=== PATIENT | female | born 1955 | race Caucasian/White ===

== ENCOUNTER 2020-12-05 15:30 | Outpatient (CLI) | payer MEDICARE, OTHER | END 2020-12-05 15:31 | disposition home or self-care (01) | LOC: CSHULT 15:30 | PROVIDERS: ATTEND Family Medicine | DX: R22.1 Localized swelling, mass and lump, neck (principal) | CPT/HCPCS: 76536 ==

== ENCOUNTER 2020-12-06 12:22 | Outpatient (CLI) | payer MEDICARE, OTHER | END 2020-12-06 12:23 | disposition home or self-care (01) | LOC: CSHCT 12:22 | PROVIDERS: ATTEND Family Medicine | DX: R22.1 Localized swelling, mass and lump, neck (principal); J38.7 Other diseases of larynx | CPT/HCPCS: 70491 ==

== ENCOUNTER 2020-12-11 09:39 | Outpatient (CLI) | payer MEDICARE, OTHER | END 2020-12-11 09:40 | disposition home or self-care (01) | LOC: CSHMAMMO 09:39 | PROVIDERS: ATTEND Family Medicine | DX: M81.0 Age-related osteoporosis without current pathological fracture (principal); M85.80 Other specified disorders of bone density and structure, unspecified site | CPT/HCPCS: 77080 ==

== ENCOUNTER 2021-04-16 10:36 | Outpatient (CLI) | payer MEDICARE, OTHER | END 2021-04-16 10:37 | disposition home or self-care (01) | LOC: CSHCT 10:36 | PROVIDERS: ATTEND Family Medicine | DX: Z12.2 Encounter for screening for malignant neoplasm of respiratory organs (principal); Z87.891 Personal history of nicotine dependence; I25.10 Atherosclerotic heart disease of native coronary artery without angina pectoris; J43.2 Centrilobular emphysema | CPT/HCPCS: 71271 ==

== ENCOUNTER 2021-09-18 08:17 | Outpatient (CLI) | payer MEDICARE, OTHER | END 2021-09-18 08:18 | disposition home or self-care (01) | LOC: CSHCT 08:17 | PROVIDERS: ATTEND Family Medicine | DX: R91.8 Other nonspecific abnormal finding of lung field (principal) | CPT/HCPCS: 71260; 82565 ==

== ENCOUNTER 2022-08-30 09:36 | Inpatient (IN) | payer MEDICARE, OTHER ==
[~2022-08-30 09:36] MED LIST: Iopamidol 370 76% 100 ML VIAL ONE
[2022-08-30] MEDS ORDERED: Acetaminophen 500 MG TAB ONE (10:04)
[2022-08-30 10:19] LABS: #Monocytes 0.5 10x3/uL (0.0-1.1); #Neutrophils 2.4 10x3/uL (1.5-8.4); %Basophils 0.3 % (0.0-2.0); %Eosinophils 0.3 % (0.0-6.0); %Lymphocytes 21.8 % (18.0-47.0); %Neutrophils 64.3 % (40.0-75.0); Hemoglobin 13.1 g/dL (12.0-15.5); Mean Corpuscular HGB CONC 33.8 g/dL (32.0-36.0); Mean Platelet Volume 9.7 fl (7.4-10.4); Platelet Count 141 10x3/uL (150-450); RBC Distribution Width 13.8 % (11.5-14.5); Red Blood Cell (RBC) Count 4.51 10x6/uL (3.90-5.03); White Blood Cell (WBC) Count 3.8 10x3/uL (3.5-10.5)
[2022-08-30] MEDS ORDERED: Ketorolac Tromethamine 30 MG/ML VIAL ONE (10:22)
[2022-08-30] MEDS ORDERED: Dexamethasone 10 MG/ML VIAL ONE (10:22)
[2022-08-30 10:43] LABS: ALT (SGPT) 21 U/L (8-55); AST (SGOT) 38 U/L (5-34); Albumin 4.1 g/dL (3.4-4.8); Alkaline Phosphatase 76 U/L (40-110); Anion Gap 15 mmol/L (10-20); BUN (Urea Nitrogen) 19 mg/dL (9.8-20.1); Bilirubin, Total 0.5 mg/dL (0.2-1.2); Calc. Creatinine Clearance 0 mL/min (70-130); Calcium 8.7 mg/dL (7.8-10.44); Carbon Dioxide 21 mmol/L (23-31); Chloride 106 mmol/L (98-107); Estimated GFR 70; Globulin 3.4 g/dL (2.4-3.5); Glucose 86 mg/dL (80-115); Potassium 3.8 mmol/L (3.5-5.1); Protein, Total 7.5 g/dL (5.8-8.1); Sodium 138 mmol/L (136-145)
[2022-08-30 10:57] LABS: SARS-CoV-2 NAA Rapid Test DETECTED (NotDetected)
[2022-08-30] MEDS ORDERED: Cefepime 2 GM VIAL ONE (11:28)
[2022-08-30] MEDS ORDERED: Azithromycin 500 MG VIAL ONE (11:29)
[2022-08-30] MEDS ORDERED: cefTRIAXone\\ROCEPHIN 2 GM VIAL ONE (11:29)
[2022-08-30] MEDS ORDERED: rOPINIRole HCl 0.25 MG TAB PO SCH (14:30)
[2022-08-30] MEDS ORDERED: Ondansetron ODT 4 MG TAB PO PRN (15:50)
[2022-08-30] MEDS ORDERED: REMDESIVIR 200 MG in Sodium Chloride 0.9% 250 ML 210 ML IV SCH ×2 (16:00→21:00)
[2022-08-30] MEDS: rOPINIRole HCl 1 MG TAB PO SCH (21:59)
[2022-08-30] MEDS: Benzonatate 100 MG CAP PO PRN (22:00)
[2022-08-30] MEDS: Famotidine 20 MG TAB PO SCH ×2 (22:04→22:21)
[2022-08-30] MEDS: Acetaminophen 325 MG TAB PO PRN (22:19)
[2022-08-30 23:09] VITALS: BMI 39.5
[2022-08-31 06:01] LABS: ALT (SGPT) 19 U/L (8-55); AST (SGOT) 32 U/L (5-34); Albumin 3.4 g/dL (3.4-4.8); Alkaline Phosphatase 65 U/L (40-110); Anion Gap 10 mmol/L (10-20); BUN (Urea Nitrogen) 18 mg/dL (9.8-20.1); Bilirubin, Total 0.3 mg/dL (0.2-1.2); Calc. Creatinine Clearance 137 mL/min (70-130); Calcium 8.4 mg/dL (7.8-10.44); Carbon Dioxide 23 mmol/L (23-31); Chloride 112 mmol/L (98-107); Estimated GFR 88; Globulin 2.9 g/dL (2.4-3.5); Glucose 207 mg/dL (80-115); Potassium 3.7 mmol/L (3.5-5.1); Protein, Total 6.3 g/dL (5.8-8.1); Sodium 141 mmol/L (136-145)
[2022-08-31 06:10] LABS: #Monocytes 0.3 10x3/uL (0.0-1.1); #Neutrophils 1.9 10x3/uL (1.5-8.4); %Basophils 0.3 % (0.0-2.0); %Lymphocytes 23.1 % (18.0-47.0); %Monocytes 9.7 % (0.0-10.0); %Neutrophils 66.6 % (40.0-75.0); Hemoglobin 11.8 g/dL (12.0-15.5); Mean Corpuscular HGB CONC 33.5 g/dL (32.0-36.0); Mean Corpuscular Volume 86.5 fl (81.6-98.3); Mean Platelet Volume 9.9 fl (7.4-10.4); Platelet Count 153 10x3/uL (150-450); RBC Distribution Width 13.6 % (11.5-14.5); Red Blood Cell (RBC) Count 4.07 10x6/uL (3.90-5.03); White Blood Cell (WBC) Count 2.9 10x3/uL (3.5-10.5)
[2022-08-31] MEDS: Ventolin HFA Inhaler 60 PUFF INHALER INH PRN ×2 (07:50→14:30)
[2022-08-31] MEDS ORDERED: Dexamethasone 10 MG/ML VIAL SLOW IVP SCH (09:00)
[2022-08-31] MEDS: Cholecalciferol (Vitamin D3) 400 UNITS TAB PO SCH (10:28)
[2022-08-31] MEDS: Famotidine 20 MG TAB PO SCH ×4 (10:28→22:19)
[2022-08-31] MEDS: rOPINIRole HCl 1 MG TAB PO SCH ×3 (10:28→20:46)
[2022-08-31] MEDS: Ascorbic Acid 500 mg Chewable Tablet PO SCH (10:29)
[2022-08-31] MEDS: Zinc Sulfate 220 MG CAP PO SCH (10:35)
[2022-08-31] MEDS: cefTRIAXone\\ROCEPHIN 1 GM in Sodium Chloride 0.9% 100 ML IVPB SCH (12:01)
[2022-08-31] MEDS: Azithromycin 500 MG in Sodium Chloride 0.9% 250 ML 250 ML IVPB SCH (13:30)
[2022-08-31] MEDS ORDERED: REMDESIVIR 100 MG in Sodium Chloride 0.9% 250 ML 230 ML IV SCH (16:00)
[2022-08-31] MEDS: Benzonatate 100 MG CAP PO PRN (20:46)
[2022-08-31] MEDS: Acetaminophen 325 MG TAB PO PRN (20:47)
[2022-08-31] MEDS: REMDESIVIR 100 MG in Sodium Chloride 0.9% 250 ML 230 ML IV SCH (20:48)
[2022-09-01] MEDS: Acetaminophen 325 MG TAB PO PRN ×2 (06:05→13:02)
[2022-09-01] MEDS: Benzonatate 100 MG CAP PO PRN (06:07)
[2022-09-01 06:48] LABS: #Monocytes 0.7 10x3/uL (0.0-1.1); #Neutrophils 5.9 10x3/uL (1.5-8.4); %Monocytes 8.8 % (0.0-10.0); %Neutrophils 76.4 % (40.0-75.0); Hemoglobin 12.5 g/dL (12.0-15.5); Mean Corpuscular HGB CONC 33.2 g/dL (32.0-36.0); Mean Corpuscular Hemoglobin 28.3 pg (27.0-33.0); Mean Corpuscular Volume 85.3 fl (81.6-98.3); Mean Platelet Volume 9.1 fl (7.4-10.4); Platelet Count 201 10x3/uL (150-450); RBC Distribution Width 14.1 % (11.5-14.5); Red Blood Cell (RBC) Count 4.41 10x6/uL (3.90-5.03); White Blood Cell (WBC) Count 7.7 10x3/uL (3.5-10.5)
[2022-09-01 06:57] LABS: ALT (SGPT) 28 U/L (8-55); AST (SGOT) 40 U/L (5-34); Albumin 3.6 g/dL (3.4-4.8); Alkaline Phosphatase 73 U/L (40-110); Anion Gap 14 mmol/L (10-20); BUN (Urea Nitrogen) 15 mg/dL (9.8-20.1); Bilirubin, Total 0.4 mg/dL (0.2-1.2); Calc. Creatinine Clearance 143 mL/min (70-130); Calcium 8.5 mg/dL (7.8-10.44); Carbon Dioxide 24 mmol/L (23-31); Chloride 112 mmol/L (98-107); Estimated GFR 92; Glucose 130 mg/dL (80-115); Potassium 3.5 mmol/L (3.5-5.1); Protein, Total 6.6 g/dL (5.8-8.1); Sodium 146 mmol/L (136-145)
[2022-09-01] MEDS: rOPINIRole HCl 1 MG TAB PO SCH ×3 (10:25→21:12)
[2022-09-01] MEDS: Ascorbic Acid 500 mg Chewable Tablet PO SCH (10:25)
[2022-09-01] MEDS: Cholecalciferol (Vitamin D3) 400 UNITS TAB PO SCH (10:25)
[2022-09-01] MEDS: Famotidine 20 MG TAB PO SCH ×4 (10:25→21:11)
[2022-09-01] MEDS: Zinc Sulfate 220 MG CAP PO SCH (10:25)
[2022-09-01] MEDS: Dexamethasone 20 MG/5 ML VIAL SLOW IVP SCH (10:26)
[2022-09-01] MEDS: cefTRIAXone\\ROCEPHIN 1 GM in Sodium Chloride 0.9% 100 ML IVPB SCH (12:05)
[2022-09-01] MEDS: Ventolin HFA Inhaler 60 PUFF INHALER INH PRN (12:55)
[2022-09-01] MEDS: Azithromycin 500 MG in Sodium Chloride 0.9% 250 ML 250 ML IVPB SCH (13:02)
[2022-09-01] MEDS: REMDESIVIR 100 MG in Sodium Chloride 0.9% 250 ML 230 ML IV SCH (21:12)
[2022-09-02] MEDS: Ventolin HFA Inhaler 60 PUFF INHALER INH PRN ×3 (02:07→17:15)
[2022-09-02] MEDS: rOPINIRole HCl 1 MG TAB PO SCH ×3 (07:53→20:27)
[2022-09-02] MEDS: Cholecalciferol (Vitamin D3) 400 UNITS TAB PO SCH (07:54)
[2022-09-02] MEDS: Famotidine 20 MG TAB PO SCH ×3 (07:54→20:27)
[2022-09-02] MEDS: Dexamethasone 20 MG/5 ML VIAL SLOW IVP SCH ×2 (07:54→20:26)
[2022-09-02] MEDS: Ascorbic Acid 500 mg Chewable Tablet PO SCH (07:54)
[2022-09-02] MEDS: Zinc Sulfate 220 MG CAP PO SCH (07:54)
[2022-09-02] MEDS: Benzonatate 100 MG CAP PO PRN ×2 (09:35→16:56)
[2022-09-02] MEDS ORDERED: Furosemide 40 MG/4 ML VIAL SLOW IVP SCH (10:15)
[2022-09-02] MEDS: cefTRIAXone\\ROCEPHIN 1 GM in Sodium Chloride 0.9% 100 ML IVPB SCH (10:30)
[2022-09-02] MEDS: Azithromycin 500 MG in Sodium Chloride 0.9% 250 ML 250 ML IVPB SCH (11:42)
[2022-09-02] MEDS ORDERED: VANCOMYCIN 1.75 GM/350 ML BAG 1.75 GM in Premix Bag 1 BAG IVPB SCH (13:00)
[2022-09-02] MEDS ORDERED: Piperacillin/Tazobactam 3.375 GM in Sodium Chloride 0.9% 100 ML IVPB SCH ×2 (13:00→20:00)
[2022-09-02] MEDS: Piperacillin/Tazobactam 3.375 GM in Sodium Chloride 0.9% 100 ML IVPB SCH (16:54)
[2022-09-02] MEDS: REMDESIVIR 100 MG in Sodium Chloride 0.9% 250 ML 230 ML IV SCH (20:27)
[2022-09-03] MEDS: Piperacillin/Tazobactam 3.375 GM in Sodium Chloride 0.9% 100 ML IVPB SCH ×3 (00:18→16:09)
[2022-09-03] MEDS: VANCOMYCIN 1.25 GM/250 ML BAG 1.25 GM in Premix Bag 1 BAG IVPB SCH ×2 (00:56→12:02)
[2022-09-03 04:56] LABS: ALT (SGPT) 42 U/L (8-55); AST (SGOT) 43 U/L (5-34); Albumin 3.4 g/dL (3.4-4.8); Alkaline Phosphatase 72 U/L (40-110); Anion Gap 17 mmol/L (10-20); BUN (Urea Nitrogen) 17 mg/dL (9.8-20.1); Bilirubin, Total 0.5 mg/dL (0.2-1.2); Calc. Creatinine Clearance 134 mL/min (70-130); Calcium 8.2 mg/dL (7.8-10.44); Carbon Dioxide 23 mmol/L (23-31); Chloride 110 mmol/L (98-107); Estimated GFR 85; Glucose 180 mg/dL (80-115); Potassium 3.6 mmol/L (3.5-5.1); Protein, Total 6.4 g/dL (5.8-8.1); Sodium 146 mmol/L (136-145)
[2022-09-03 05:04] LABS: CRP (Inflammatory) 1.01 mg/dL (= or < 0.5)
[2022-09-03 05:25] LABS: #Monocytes 0.4 10x3/uL (0.0-1.1); #Neutrophils 6.3 10x3/uL (1.5-8.4); %Basophils 0.1 % (0.0-2.0); %Lymphocytes 8.6 % (18.0-47.0); %Monocytes 5.3 % (0.0-10.0); %Neutrophils 83.7 % (40.0-75.0); Hemoglobin 12.7 g/dL (12.0-15.5); Mean Corpuscular HGB CONC 33.5 g/dL (32.0-36.0); Mean Corpuscular Hemoglobin 28.9 pg (27.0-33.0); Mean Corpuscular Volume 86.3 fl (81.6-98.3); Mean Platelet Volume 9.1 fl (7.4-10.4); Platelet Count 252 10x3/uL (150-450); Red Blood Cell (RBC) Count 4.39 10x6/uL (3.90-5.03); White Blood Cell (WBC) Count 7.5 10x3/uL (3.5-10.5)
[2022-09-03] MEDS: Famotidine 20 MG TAB PO SCH ×2 (08:31→20:37)
[2022-09-03] MEDS: Dexamethasone 20 MG/5 ML VIAL SLOW IVP SCH ×2 (08:31→20:37)
[2022-09-03] MEDS: Zinc Sulfate 220 MG CAP PO SCH (08:31)
[2022-09-03] MEDS: Cholecalciferol (Vitamin D3) 400 UNITS TAB PO SCH (08:31)
[2022-09-03] MEDS: Ascorbic Acid 500 mg Chewable Tablet PO SCH (08:31)
[2022-09-03] MEDS: Propranolol 40 MG TAB PO SCH ×2 (08:40→20:37)
[2022-09-03] MEDS: Amitriptyline HCl 25 MG TAB PO SCH (08:40)
[2022-09-03] MEDS: rOPINIRole HCl 1 MG TAB PO SCH ×3 (08:42→20:36)
[2022-09-03] MEDS: Ventolin HFA Inhaler 60 PUFF INHALER INH PRN (17:01)
[2022-09-03] MEDS: REMDESIVIR 100 MG in Sodium Chloride 0.9% 250 ML 230 ML IV SCH (20:37)
[2022-09-03] MEDS: Benzonatate 100 MG CAP PO PRN (20:37)
[2022-09-04] MEDS ORDERED: Piperacillin/Tazobactam 3.375 GM VIAL ONE (00:25)
[2022-09-04 00:38] LABS: Vancomycin, Trough 12.4 ug/mL
[2022-09-04] MEDS: Piperacillin/Tazobactam 3.375 GM in Sodium Chloride 0.9% 100 ML IVPB SCH ×3 (01:44→16:46)
[2022-09-04] MEDS: VANCOMYCIN 1.25 GM/250 ML BAG 1.25 GM in Premix Bag 1 BAG IVPB SCH ×2 (01:46→12:06)
[2022-09-04] MEDS: Benzonatate 100 MG CAP PO PRN ×2 (05:41→20:40)
[2022-09-04] MEDS: Famotidine 20 MG TAB PO SCH ×2 (07:56→20:40)
[2022-09-04] MEDS: Amitriptyline HCl 25 MG TAB PO SCH (07:56)
[2022-09-04] MEDS: Propranolol 40 MG TAB PO SCH ×2 (07:56→20:40)
[2022-09-04] MEDS: Ascorbic Acid 500 mg Chewable Tablet PO SCH (07:56)
[2022-09-04] MEDS: rOPINIRole HCl 1 MG TAB PO SCH ×3 (07:56→20:40)
[2022-09-04] MEDS: Dexamethasone 20 MG/5 ML VIAL SLOW IVP SCH ×2 (07:57→20:40)
[2022-09-04] MEDS: Zinc Sulfate 220 MG CAP PO SCH (07:57)
[2022-09-04] MEDS: Cholecalciferol (Vitamin D3) 400 UNITS TAB PO SCH (07:57)
[2022-09-04] MEDS ORDERED: Communication Order-Pharmacy FS PRN (09:03)
[2022-09-05] MEDS: Piperacillin/Tazobactam 3.375 GM in Sodium Chloride 0.9% 100 ML IVPB SCH ×3 (01:13→16:02)
[2022-09-05] MEDS: VANCOMYCIN 1.25 GM/250 ML BAG 1.25 GM in Premix Bag 1 BAG IVPB SCH ×2 (01:15→13:21)
[2022-09-05] MEDS: Propranolol 40 MG TAB PO SCH ×2 (08:29→21:19)
[2022-09-05] MEDS: Zinc Sulfate 220 MG CAP PO SCH (08:30)
[2022-09-05] MEDS: Cholecalciferol (Vitamin D3) 400 UNITS TAB PO SCH (08:30)
[2022-09-05] MEDS: rOPINIRole HCl 1 MG TAB PO SCH ×3 (08:31→21:19)
[2022-09-05] MEDS: Ascorbic Acid 500 mg Chewable Tablet PO SCH (08:31)
[2022-09-05] MEDS: Dexamethasone 20 MG/5 ML VIAL SLOW IVP SCH ×2 (08:32→21:18)
[2022-09-05] MEDS: Amitriptyline HCl 25 MG TAB PO SCH (08:32)
[2022-09-05] MEDS: Famotidine 20 MG TAB PO SCH ×2 (08:34→21:19)
[2022-09-05 13:02] LABS: Vancomycin, Trough 13.9 ug/mL
[2022-09-05] MEDS: Benzonatate 100 MG CAP PO PRN ×2 (16:02→21:19)
[2022-09-06] MEDS: VANCOMYCIN 1.25 GM/250 ML BAG 1.25 GM in Premix Bag 1 BAG IVPB SCH ×2 (00:56→12:47)
[2022-09-06] MEDS: Piperacillin/Tazobactam 3.375 GM in Sodium Chloride 0.9% 100 ML IVPB SCH ×3 (00:56→16:20)
[2022-09-06 08:30] LABS: #Monocytes 0.6 10x3/uL (0.0-1.1); %Basophils 0.3 % (0.0-2.0); %Lymphocytes 6.7 % (18.0-47.0); %Monocytes 5.4 % (0.0-10.0); %Neutrophils 84.5 % (40.0-75.0); Hemoglobin 13.7 g/dL (12.0-15.5); Mean Corpuscular HGB CONC 33.3 g/dL (32.0-36.0); Mean Corpuscular Hemoglobin 28.3 pg (27.0-33.0); Mean Corpuscular Volume 84.9 fl (81.6-98.3); Mean Platelet Volume 9.4 fl (7.4-10.4); Platelet Count 379 10x3/uL (150-450); RBC Distribution Width 13.5 % (11.5-14.5); Red Blood Cell (RBC) Count 4.84 10x6/uL (3.90-5.03); White Blood Cell (WBC) Count 11.9 10x3/uL (3.5-10.5)
[2022-09-06 08:51] LABS: Anion Gap 14 mmol/L (10-20); BUN (Urea Nitrogen) 21 mg/dL (9.8-20.1); Calc. Creatinine Clearance 137 mL/min (70-130); Calcium 8.7 mg/dL (7.8-10.44); Carbon Dioxide 22 mmol/L (23-31); Chloride 111 mmol/L (98-107); Estimated GFR 88; Glucose 160 mg/dL (80-115); Potassium 4.1 mmol/L (3.5-5.1); Sodium 143 mmol/L (136-145)
[2022-09-06] MEDS: Dexamethasone 20 MG/5 ML VIAL SLOW IVP SCH ×2 (09:17→21:22)
[2022-09-06] MEDS: Ascorbic Acid 500 mg Chewable Tablet PO SCH (09:18)
[2022-09-06] MEDS: Cholecalciferol (Vitamin D3) 400 UNITS TAB PO SCH (09:18)
[2022-09-06] MEDS: Zinc Sulfate 220 MG CAP PO SCH (09:18)
[2022-09-06] MEDS: Amitriptyline HCl 25 MG TAB PO SCH (09:19)
[2022-09-06] MEDS: Propranolol 40 MG TAB PO SCH ×2 (09:19→21:22)
[2022-09-06] MEDS: Famotidine 20 MG TAB PO SCH (09:19)
[2022-09-06] MEDS: rOPINIRole HCl 1 MG TAB PO SCH ×3 (09:19→21:22)
[2022-09-06] MEDS: Benzonatate 100 MG CAP PO PRN (16:20)
[2022-09-07] MEDS: Piperacillin/Tazobactam 3.375 GM in Sodium Chloride 0.9% 100 ML IVPB SCH ×3 (01:36→16:42)
[2022-09-07] MEDS: VANCOMYCIN 1.25 GM/250 ML BAG 1.25 GM in Premix Bag 1 BAG IVPB SCH ×2 (01:58→12:41)
[2022-09-07 03:42] LABS: #Monocytes 0.4 10x3/uL (0.0-1.1); #Neutrophils 8.3 10x3/uL (1.5-8.4); %Basophils 0.1 % (0.0-2.0); %Lymphocytes 6.3 % (18.0-47.0); %Monocytes 4.5 % (0.0-10.0); %Neutrophils 84.1 % (40.0-75.0); Hemoglobin 12.4 g/dL (12.0-15.5); Mean Corpuscular HGB CONC 33.4 g/dL (32.0-36.0); Mean Corpuscular Hemoglobin 28.4 pg (27.0-33.0); Mean Corpuscular Volume 85.1 fl (81.6-98.3); Mean Platelet Volume 9.3 fl (7.4-10.4); Platelet Count 311 10x3/uL (150-450); RBC Distribution Width 13.6 % (11.5-14.5); Red Blood Cell (RBC) Count 4.36 10x6/uL (3.90-5.03); White Blood Cell (WBC) Count 9.9 10x3/uL (3.5-10.5)
[2022-09-07 03:57] LABS: Anion Gap 13 mmol/L (10-20); BUN (Urea Nitrogen) 21 mg/dL (9.8-20.1); Calc. Creatinine Clearance 132 mL/min (70-130); Calcium 8.2 mg/dL (7.8-10.44); Carbon Dioxide 22 mmol/L (23-31); Chloride 112 mmol/L (98-107); Estimated GFR 84; Glucose 175 mg/dL (80-115); Potassium 3.3 mmol/L (3.5-5.1); Sodium 144 mmol/L (136-145)
[2022-09-07] MEDS: rOPINIRole HCl 1 MG TAB PO SCH ×3 (09:14→21:06)
[2022-09-07] MEDS: Propranolol 40 MG TAB PO SCH ×2 (09:14→21:06)
[2022-09-07] MEDS: Zinc Sulfate 220 MG CAP PO SCH (09:14)
[2022-09-07] MEDS: Ascorbic Acid 500 mg Chewable Tablet PO SCH (09:15)
[2022-09-07] MEDS: Amitriptyline HCl 25 MG TAB PO SCH (09:15)
[2022-09-07] MEDS: Cholecalciferol (Vitamin D3) 400 UNITS TAB PO SCH (09:15)
[2022-09-07] MEDS: Dexamethasone 20 MG/5 ML VIAL SLOW IVP SCH ×2 (09:15→21:06)
[2022-09-08] MEDS: VANCOMYCIN 1.25 GM/250 ML BAG 1.25 GM in Premix Bag 1 BAG IVPB SCH (00:42)
[2022-09-08] MEDS: Piperacillin/Tazobactam 3.375 GM in Sodium Chloride 0.9% 100 ML IVPB SCH ×3 (00:44→16:00)
[2022-09-08 04:05] LABS: #Monocytes 0.4 10x3/uL (0.0-1.1); #Neutrophils 7.8 10x3/uL (1.5-8.4); %Basophils 0.2 % (0.0-2.0); %Lymphocytes 4.9 % (18.0-47.0); %Monocytes 4.6 % (0.0-10.0); %Neutrophils 85.9 % (40.0-75.0); Hemoglobin 12.5 g/dL (12.0-15.5); Mean Corpuscular HGB CONC 33.5 g/dL (32.0-36.0); Mean Corpuscular Volume 86.5 fl (81.6-98.3); Mean Platelet Volume 9.4 fl (7.4-10.4); Platelet Count 276 10x3/uL (150-450); RBC Distribution Width 13.7 % (11.5-14.5); Red Blood Cell (RBC) Count 4.31 10x6/uL (3.90-5.03); White Blood Cell (WBC) Count 9.1 10x3/uL (3.5-10.5)
[2022-09-08 04:21] LABS: Anion Gap 11 mmol/L (10-20); BUN (Urea Nitrogen) 19 mg/dL (9.8-20.1); Calc. Creatinine Clearance 139 mL/min (70-130); Calcium 8.1 mg/dL (7.8-10.44); Carbon Dioxide 23 mmol/L (23-31); Chloride 112 mmol/L (98-107); Estimated GFR 89; Glucose 232 mg/dL (80-115); Potassium 3.6 mmol/L (3.5-5.1); Sodium 142 mmol/L (136-145)
[2022-09-08] MEDS: Ascorbic Acid 500 mg Chewable Tablet PO SCH (09:03)
[2022-09-08] MEDS: Amitriptyline HCl 25 MG TAB PO SCH (09:03)
[2022-09-08] MEDS: Zinc Sulfate 220 MG CAP PO SCH (09:03)
[2022-09-08] MEDS: Propranolol 40 MG TAB PO SCH ×2 (09:03→20:39)
[2022-09-08] MEDS: Cholecalciferol (Vitamin D3) 400 UNITS TAB PO SCH (09:03)
[2022-09-08] MEDS: Dexamethasone 20 MG/5 ML VIAL SLOW IVP SCH ×2 (09:04→20:40)
[2022-09-08] MEDS: rOPINIRole HCl 1 MG TAB PO SCH ×3 (09:15→20:39)
[2022-09-09] MEDS: Piperacillin/Tazobactam 3.375 GM in Sodium Chloride 0.9% 100 ML IVPB SCH ×3 (01:05→16:24)
[2022-09-09 03:59] LABS: Anion Gap 13 mmol/L (10-20); BUN (Urea Nitrogen) 21 mg/dL (9.8-20.1); Calc. Creatinine Clearance 127 mL/min (70-130); Calcium 8.6 mg/dL (7.8-10.44); Carbon Dioxide 24 mmol/L (23-31); Chloride 112 mmol/L (98-107); Estimated GFR 80; Glucose 191 mg/dL (80-115); Potassium 3.6 mmol/L (3.5-5.1); Sodium 145 mmol/L (136-145)
[2022-09-09 04:02] LABS: #Monocytes 0.4 10x3/uL (0.0-1.1); #Neutrophils 8.9 10x3/uL (1.5-8.4); %Basophils 0.3 % (0.0-2.0); %Lymphocytes 4.9 % (18.0-47.0); %Monocytes 3.7 % (0.0-10.0); %Neutrophils 88.2 % (40.0-75.0); Hemoglobin 12.7 g/dL (12.0-15.5); Mean Corpuscular HGB CONC 33.2 g/dL (32.0-36.0); Mean Corpuscular Hemoglobin 28.5 pg (27.0-33.0); Mean Corpuscular Volume 86.1 fl (81.6-98.3); Mean Platelet Volume 9.6 fl (7.4-10.4); Platelet Count 287 10x3/uL (150-450); RBC Distribution Width 13.9 % (11.5-14.5); Red Blood Cell (RBC) Count 4.45 10x6/uL (3.90-5.03); White Blood Cell (WBC) Count 10.1 10x3/uL (3.5-10.5)
[2022-09-09] MEDS: Amitriptyline HCl 25 MG TAB PO SCH (08:16)
[2022-09-09] MEDS: rOPINIRole HCl 1 MG TAB PO SCH ×3 (08:17→20:21)
[2022-09-09] MEDS: Zinc Sulfate 220 MG CAP PO SCH (08:17)
[2022-09-09] MEDS: Ascorbic Acid 500 mg Chewable Tablet PO SCH (08:17)
[2022-09-09] MEDS: Dexamethasone 20 MG/5 ML VIAL SLOW IVP SCH ×2 (08:18→20:22)
[2022-09-09] MEDS: Cholecalciferol (Vitamin D3) 400 UNITS TAB PO SCH (08:18)
[2022-09-09] MEDS: Propranolol 40 MG TAB PO SCH ×2 (08:18→20:21)
[2022-09-10] MEDS: Piperacillin/Tazobactam 3.375 GM in Sodium Chloride 0.9% 100 ML IVPB SCH ×2 (00:13→08:48)
[2022-09-10] MEDS: Ascorbic Acid 500 mg Chewable Tablet PO SCH (08:47)
[2022-09-10] MEDS: rOPINIRole HCl 1 MG TAB PO SCH ×3 (08:47→20:22)
[2022-09-10] MEDS: Cholecalciferol (Vitamin D3) 400 UNITS TAB PO SCH (08:47)
[2022-09-10] MEDS: Amitriptyline HCl 25 MG TAB PO SCH (08:47)
[2022-09-10] MEDS: Zinc Sulfate 220 MG CAP PO SCH (08:48)
[2022-09-10] MEDS: Dexamethasone 20 MG/5 ML VIAL SLOW IVP SCH (08:48)
[2022-09-10] MEDS: Propranolol 40 MG TAB PO SCH ×2 (08:48→20:22)
[2022-09-10] MEDS: Mometasone/Formoterol 60 PUFF AER INH SCH (20:51)
[2022-09-11] MEDS: Ventolin HFA Inhaler 60 PUFF INHALER INH PRN (07:40)
[2022-09-11] MEDS: Mometasone/Formoterol 60 PUFF AER INH SCH (07:45)
[2022-09-11] MEDS ORDERED: Dexamethasone 20 MG/5 ML VIAL SLOW IVP SCH (09:00)
[2022-09-11] MEDS: Propranolol 40 MG TAB PO SCH (09:13)
[2022-09-11] MEDS: Zinc Sulfate 220 MG CAP PO SCH (09:13)
[2022-09-11] MEDS: Amitriptyline HCl 25 MG TAB PO SCH (09:14)
[2022-09-11] MEDS: rOPINIRole HCl 1 MG TAB PO SCH ×2 (09:14→15:48)
[2022-09-11] MEDS: Ascorbic Acid 500 mg Chewable Tablet PO SCH (09:14)
[2022-09-11] MEDS: Cholecalciferol (Vitamin D3) 400 UNITS TAB PO SCH (09:14)
[2022-09-11 17:33] VITALS: BP 138/81; TEMP 98.4
== END 2022-09-11 17:45 | disposition home or self-care (01) | DRG 871 ==
LOC: CSHERS 09:36 → CSHERHOLD 12:22 → CSHTELE 20:53 → CSHIMCU 09-02 06:20 → CSHTELE 09-06 18:25
PROVIDERS: ADMIT Family Medicine; ATTEND Family Medicine
PROC: 8E0ZXY6 Isolation (ICD-10-PCS; principal; 2022-08-30)
PROC: 3E03329 Introduction of Other Anti-infective into Peripheral Vein, Percutaneous Approach (ICD-10-PCS; 2022-08-30)
PROC: XW033E5 Introduction of Remdesivir Anti-infective into Peripheral Vein, Percutaneous Approach, New Technology Group 5 (ICD-10-PCS; 2022-08-30)
PROC: 5A0945A Assistance with Respiratory Ventilation, 24-96 Consecutive Hours, High Flow/Velocity Cannula (ICD-10-PCS; 2022-09-02)
DX: A41.9 Sepsis, unspecified organism (principal); J12.82 Pneumonia due to coronavirus disease 2019; J96.01 Acute respiratory failure with hypoxia; U07.1 COVID-19; R65.20 Severe sepsis without septic shock; I10 Essential (primary) hypertension; G43.909 Migraine, unspecified, not intractable, without status migrainosus; M19.90 Unspecified osteoarthritis, unspecified site; G25.81 Restless legs syndrome; J43.9 Emphysema, unspecified; Z79.899 Other long term (current) drug therapy; Z79.82 Long term (current) use of aspirin; Z87.442 Personal history of urinary calculi; Z87.891 Personal history of nicotine dependence
CPT/HCPCS: 36415; 36416; 71045; 71275; 80048; 80053; 80202; 82565; 83605; 83880; 84145; 85025; 85379; 86140; 87040; 93005; 94640; 94664; 94760; 96365; 96375; J0248; J0456; J0692; J0696; J1100; J1650; J1885; J1940; J2543; J3370; J3490; J7050; Q9967

== ENCOUNTER 2023-03-04 09:56 | Outpatient (CLI) | payer MEDICARE, OTHER | END 2023-03-04 09:57 | disposition home or self-care (01) | LOC: CSHWCC 09:56 | PROVIDERS: ATTEND Nurse Practitioner Family | DX: S81.802D Unspecified open wound, left lower leg, subsequent encounter (principal); S81.801D Unspecified open wound, right lower leg, subsequent encounter; R60.0 Localized edema | CPT/HCPCS: 11042; 29581; 97139; G0463; 36415; 80053; 81001; 82248; 82728; 83540; 83550; 83880; 84443; 85025; 99203 ==

== ENCOUNTER 2023-03-18 09:37 | Outpatient (CLI) | payer MEDICARE, OTHER | END 2023-03-18 09:38 | disposition home or self-care (01) | LOC: CSHWCC 09:37 | PROVIDERS: ATTEND Nurse Practitioner Family | DX: S81.802D Unspecified open wound, left lower leg, subsequent encounter (principal); S81.801D Unspecified open wound, right lower leg, subsequent encounter; R60.0 Localized edema | CPT/HCPCS: 11042; 29581 ==

== ENCOUNTER 2023-04-08 10:59 | Outpatient (CLI) | payer MEDICARE, OTHER | END 2023-04-08 11:00 | disposition home or self-care (01) | LOC: CSHWCC 10:59 | PROVIDERS: ATTEND Nurse Practitioner Family | DX: S81.801D Unspecified open wound, right lower leg, subsequent encounter (principal); S81.802D Unspecified open wound, left lower leg, subsequent encounter; R60.0 Localized edema | CPT/HCPCS: 11042; 29581; 87070; 87077; 87205; 99213; G0463 ==

== ENCOUNTER 2023-04-29 11:15 | Outpatient (CLI) | payer MEDICARE, OTHER | END 2023-04-29 11:16 | disposition home or self-care (01) | LOC: CSHWCC 11:15 | PROVIDERS: ATTEND Nurse Practitioner Family | DX: S81.802D Unspecified open wound, left lower leg, subsequent encounter (principal); R60.0 Localized edema | CPT/HCPCS: 29581 ==